=== PATIENT | male | born 1985 | race Caucasian/White ===

== ENCOUNTER 2017-06-06 13:17 | Emergency (ER) | payer MEDICAID ==
--- NOTE | 2017-06-06 13:44 | EDM.PDOC ---
ED HPI GENERAL MEDICAL PROBLEM - General Chief Complaint: General Stated Complaint: BLOOD IN URINE Time Seen by Provider: 06/06/17 13:30 Source of Information: Reports: Patient History Limitations: Reports: No Limitations - History of Present Illness INITIAL COMMENTS - FREE TEXT/NARRATIVE: Jimi comes to [facility] ED with a week long hx of post voiding burning pain, at times associated with sediment or mucous in the urine, and more recently today with BRB. He denies recent coitus, hx of UTI or stone disease, but does admit to a STD about 3 years ago. He is on no prescription meds. Penis Pain Score (Numeric/FACES): 4 - Related Data Allergies Allergy/AdvReac Type Severity Reaction Status Date / Time acetaminophen [From NyQuil] Allergy Shortness Verified 02/03/13 18:11 of Breath dextromethorphan HBr Allergy Shortness Verified 02/03/13 18:11 [From NyQuil] of Breath doxylamine [From NyQuil] Allergy Shortness Verified 02/03/13 18:11 of Breath ibuprofen Allergy Shortness Verified 02/03/13 18:11 [From DayQuil Sinus of Breath Pressure/Pain] pseudoephedrine HCl Allergy Shortness Verified 02/03/13 18:11 [From NyQuil] of Breath venom-honey bee Allergy Anaphylactic Verified 02/03/13 18:11 [bee venom (honey bee)] Shock Home Meds: Home Meds Sulfamethoxazole/Trimethoprim [Bactrim Ds Tablet] 1 each PO BID #14 tablet 06/06 [Rx] Past Medical History - Infectious Disease History Infectious Disease History: Reports: Other (See Below) (STD) Social & Family History - Tobacco Use Smoking Status *Q: Current Some Day Smoker Years of Tobacco use: 13 - Recreational Drug Use Recreational Drug Use: No ED ROS GENERAL - Review of Systems Review Of Systems: ROS reveals no pertinent complaints other than HPI. ED EXAM, GENERAL - Physical Exam Exam: See Below Exam Limited By: No Limitations General Appearance: Alert, WD/WN, No Apparent Distress Head: Normocephalic Neck: Normal Inspection, Supple, Non-Tender Respiratory/Chest: Lungs Clear, Normal Breath Sounds Cardiovascular: Regular Rate, Rhythm, No Murmur GI/Abdominal: Normal Bowel Sounds, Soft, Non-Tender, No Organomegaly, No Distention, No Mass (Male) Exam: No Hernia, Normal Inspection, Circumcised Back Exam: Normal Inspection Extremities: Normal Inspection Neurological: Alert, Oriented, CN II-XII Intact, Normal Gait, No Motor/Sensory Deficits Psychiatric: Normal Affect, Anxious Skin Exam: Warm, Dry Lymphatic: No Adenopathy Course - Vital Signs Text/Narrative:: The UA noted large blood, pos nitrites, pyuria and hematuria. A UC is pending. Hemorrhagic cystitis is apparent clinically. Last Recorded V/S: Last Vital Signs Temp 36.6 C 06/06/17 13:50 Pulse 84 06/06/17 13:50 Resp 16 06/06/17 13:50 BP 113/82 06/06/17 13:50 Pulse Ox 100 06/06/17 13:50 - Orders/Labs/Meds Orders: Active Orders 24 hr Category Date Time Status CHLAMYDIA,AND GC BY APTIMA Urgent Lab 06/06/17 13:46 Received CULTURE URINE [RM] Stat Lab 06/06/17 13:46 Received Labs: Laboratory Tests 06/06/17 Range/Units 13:46 Urine Color [place] (YELLOW) Urine Appearance Slightly cloudy (CLEAR) Urine pH 5.0 (5.0-6.5) Ur Specific [place] 1.010 (1.010-1.025) Urine Protein 500 H (NEGATIVE) mg/dL Urine Glucose (UA) Normal (NEGATIVE) mg/dL Urine Ketones Negative (NEGATIVE) mg/dL Urine Occult Blood Large H (NEGATIVE) Urine Nitrite Positive H (NEGATIVE) Urine Bilirubin Moderate H (NEGATIVE) Urine Urobilinogen >=12 H (NEGATIVE) mg/dL Ur Leukocyte Esterase Small H (NEGATIVE) Urine RBC >100 H (0) Urine WBC >100 H (0) Ur Squamous Epith Cells Few H (NS,R,O) Urine Bacteria Many H (NS) Departure - Departure Time of Disposition: 14:21 Disposition: Home, Self-Care 01 Condition: Fair Clinical Impression: Hemorrhagic cystitis - Discharge Information Prescriptions: Sulfamethoxazole/Trimethoprim [Bactrim Ds Tablet] 1 each PO BID #14 tablet Referrals: Mc Gonsalez MD [Primary Care Provider] - Forms: ED Department Discharge - Problem List & Annotations (1) Hemorrhagic cystitis SNOMED Code(s): 09583007 Code(s): N30.91 - CYSTITIS, UNSPECIFIED WITH HEMATURIA Status: Acute Current Visit: Yes Annotation/Comment:: I dispensed SMP/TMX DS bid for a week , suggested hydration and Pyridium for comfort. - Problem List Review Problem List Initiated/Reviewed/Updated: Yes - My Orders Last 24 Hours: My Active Orders 06/06/17 13:46 CHLAMYDIA,AND GC BY APTIMA Urgent CULTURE URINE [RM] Stat - Assessment/Plan Last 24 Hours: My Active Orders 06/06/17 13:46 CHLAMYDIA,AND GC BY APTIMA Urgent CULTURE URINE [RM] Stat Plan: Follow up with PCP in 1 week.
[2017-06-06 13:51] VITALS: BP 113/82
== END 2017-06-06 14:39 | disposition home or self-care (01) ==
LOC: FB.ED 13:17
DX: N30.91 Cystitis, unspecified with hematuria (principal); F17.210 Nicotine dependence, cigarettes, uncomplicated; Z88.6 Allergy status to analgesic agent; Z88.8 Allergy status to other drugs, medicaments and biological substances; Z91.030 Bee allergy status
CPT/HCPCS: 81001; 87086; 87088; 87186; 87491; 87591; 99284

== ENCOUNTER 2017-07-03 10:59 | Emergency (ER) | payer MEDICAID ==
[2017-07-03] MEDS ORDERED: Acetaminophen 500 MG Tab PO ONE (11:49)
[2017-07-03] MEDS ORDERED: Ondansetron 4 MG Tab.DIS PO ONE (11:49)
--- NOTE | 2017-07-03 11:57 | EDM.PDOC ---
ED HPI GENERAL MEDICAL PROBLEM - General Chief Complaint: General Stated Complaint: BLADDER INFECTION Time Seen by Provider: 07/03/17 11:40 Source of Information: Reports: Patient, Old Records History Limitations: Reports: No Limitations - History of Present Illness INITIAL COMMENTS - FREE TEXT/NARRATIVE: 31 yo non-compliant, smoking male presents with dysuria, R flank pain, body aches, weakness, nausea without vomiting, and malaise. He had been here a couple weeks ago and was prescribed an antibiotic that he didn't finish. He was instructed to follow up in the clinic but he did not. No respiratory complaints. Feels worse when he is up. No diarrhea or rash. Onset: Gradual, Unknown/Unsure Duration: Day(s):, Getting Worse Location: Reports: Generalized Quality: Reports: Ache (R flank?) Severity: Moderate Improves with: Reports: None Worsens with: Reports: Other (? time) Context: Reports: Other (Recent UTI dx with no followup or completion of meds. ) Associated Symptoms: Reports: Fever/Chills (Not sure about the fever, not measured.), Malaise, Nausea/Vomiting (no vomiting, nausea intermittent and mild. ). Denies: Cough, Headaches, Rash Treatments [employer]LECT[employer]: Reports: Other (see below) (none) Generalized Pain Score (Numeric/FACES): 3 - Related Data Allergies Allergy/AdvReac Type Severity Reaction Status Date / Time acetaminophen [From NyQuil] Allergy Shortness Verified 07/03/17 12:03 of Breath dextromethorphan HBr Allergy Shortness Verified 07/03/17 12:03 [From NyQuil] of Breath doxylamine [From NyQuil] Allergy Shortness Verified 07/03/17 12:03 of Breath ibuprofen Allergy Shortness Verified 07/03/17 12:03 [From DayQuil Sinus of Breath Pressure/Pain] pseudoephedrine HCl Allergy Shortness Verified 07/03/17 12:03 [From NyQuil] of Breath venom-honey bee Allergy Anaphylactic Verified 07/03/17 12:03 [bee venom (honey bee)] Shock Home Meds: Home Meds NK [No Known Home Meds] 07/03/17 [History] Past Medical History Psychiatric History: Reports: Depression Other Psychiatric History: Pt is going to be seen tomorrow here in [facility]. Pt is currently not on any medication. - Infectious Disease History Infectious Disease History: Reports: Other (See Below) (STD) Other Infectious Disease History: Pt states about 3 years ago he was treated with PO medications for STD-unknown. Social & Family History - Tobacco Use Smoking Status *Q: Current Some Day Smoker Years of Tobacco use: 13 Packs/Tins Daily: 1 - Recreational Drug Use Recreational Drug Use: No ED ROS GENERAL - Review of Systems Review Of Systems: See Below Constitutional: Reports: Fever (possibly), Malaise HEENT: Reports: No Symptoms Respiratory: Reports: No Symptoms Cardiovascular: Reports: Lightheadedness Endocrine: Reports: No Symptoms GI/Abdominal: Reports: Nausea. Denies: Abdominal Pain, Anorexia, Black Stool, Bloody Stool, Constipation, Diarrhea, Decreased Appetite, Difficulty Swallowing , Distension, Flatus, Hematemesis, Hematochezia, Melena, Vomiting : Reports: Dysuria, Flank Pain (mild on the right.) Musculoskeletal: Reports: No Symptoms Skin: Reports: No Symptoms Neurological: Reports: No Symptoms ED EXAM, GENERAL - Physical Exam Exam: See Below Exam Limited By: No Limitations General Appearance: Alert, WD/WN, No Apparent Distress Eye Exam: Bilateral Eye: Normal Inspection Ears: Normal External Exam, Normal Canal, Hearing Grossly Normal, Normal TMs Ear Exam: Bilateral Ear: Auricle Normal, Canal Normal, TM normal Nose: Normal Inspection, Normal Mucosa, No Blood Throat/Mouth: Normal Inspection, Normal Lips, Normal Oropharynx, Normal Voice, No Airway Compromise Head: Atraumatic, Normocephalic Neck: Normal Inspection, Supple, Non-Tender Respiratory/Chest: No Respiratory Distress, Lungs Clear, Normal Breath Sounds, No Accessory Muscle Use, Chest Non-Tender Cardiovascular: Regular Rate, Rhythm, No Edema GI/Abdominal: Normal Bowel Sounds, Soft, Non-Tender, No Distention Back Exam: Normal Inspection, CVA Tenderness (R) Extremities: Normal Inspection, Normal Range of Motion, Non-Tender, No Pedal Edema Neurological: Alert, Oriented, CN II-XII Intact, Normal Cognition, No Motor/ Sensory Deficits Psychiatric: Normal Affect, Normal Mood Skin Exam: Warm, Dry, Intact, Normal Color, No Rash Lymphatic: No Adenopathy Course - Vital Signs Last Recorded V/S: Last Vital Signs Temp 36.9 C 07/03/17 12:22 Pulse 73 07/03/17 12:22 Resp 18 07/03/17 12:22 BP 129/74 07/03/17 12:22 Pulse Ox 99 07/03/17 12:22 Orthostatic Blood Pressure [ 120/93 Standing] Orthostatic Blood Pressure [ 150/73 Sitting] Orthostatic Blood Pressure [ 118/76 Supine] - Orders/Labs/Meds Orders: Active Orders 24 hr Category Date Time Status Orthostatic Vital Signs [RC] ASDIRECTED Care 07/03/17 11:48 Active Labs: Laboratory Tests 07/03/17 07/03/17 07/03/17 Range/Units 12:00 12:03 12:03 WBC 11.1 (4.5-12.0) X10-3/uL RBC 5.18 (4.30-5.75) x10(6)uL Hgb 15.4 (11.5-15.5) g/dL Hct 45.4 (30.0-51.3) % MCV 87.7 (80-96) fL MCH 29.7 (27.7-33.6) pg MCHC 33.9 (32.2-35.4) g/dL RDW 12.8 (11.5-15.5) % Plt Count 288 (125-369) X10(3)uL Sodium 141 (135-145) mmol/L Potassium 4.2 (3.5-5.3) mmol/L Chloride 103 (100-110) mmol/L Carbon Dioxide 31 (21-32) mmol/L BUN 10 (7-18) mg/dL Creatinine 1.0 (0.70-1.30) mg/dL Est Cr Clr Drug Dosing 115.67 mL/min Estimated GFR (MDRD) > 60 (>60) BUN/Creatinine Ratio 10.0 (9-20) Glucose 75 L (80-116) mg/dL Calcium 9.4 (8.6-10.2) mg/dL Urine Color Yellow (YELLOW) Urine Appearance Clear (CLEAR) Urine pH 7.0 H (5.0-6.5) Ur Specific [place] 1.010 (1.010-1.025) Urine Protein Negative (NEGATIVE) mg/dL Urine Glucose (UA) Normal (NEGATIVE) mg/dL Urine Ketones Negative (NEGATIVE) mg/dL Urine Occult Blood Negative (NEGATIVE) Urine Nitrite Negative (NEGATIVE) Urine Bilirubin Negative (NEGATIVE) Urine Urobilinogen Normal (NEGATIVE) mg/dL Ur Leukocyte Esterase Negative (NEGATIVE) Urine WBC 0-5 (0) Ur Squamous Epith Cells Occasional (NS,R,O) Urine Bacteria Few H (NS) Meds: Medications Discontinued Medications Generic Name Dose Route Start Last Admin Trade Name Freq PRN Reason Stop Dose Admin Acetaminophen 1,000 mg 07/03/17 11:49 07/03/17 12:18 Tylenol Extra Strength PO 07/03/17 11:50 1,000 mg ONETIME ONE Administration Ondansetron HCl 4 mg 07/03/17 11:49 07/03/17 12:19 Zofran Odt PO 07/03/17 11:50 4 mg ONETIME ONE Administration Departure - Departure Time of Disposition: 12:53 Disposition: Home, Self-Care 01 Condition: Fair Clinical Impression: Viral illness - Discharge Information Referrals: Pham Cespedes NP [Primary Care Provider] - Forms: ED Department Discharge - My Orders Last 24 Hours: My Active Orders 07/03/17 11:48 Orthostatic Vital Signs [RC] ASDIRECTED - Assessment/Plan Last 24 Hours: My Active Orders 07/03/17 11:48 Orthostatic Vital Signs [RC] ASDIRECTED
[2017-07-03 13:44] VITALS: BP 116/65
== END 2017-07-03 13:43 | disposition home or self-care (01) ==
LOC: FB.ED 10:59
DX: B34.9 Viral infection, unspecified (principal); F17.210 Nicotine dependence, cigarettes, uncomplicated; Z88.8 Allergy status to other drugs, medicaments and biological substances; Z91.030 Bee allergy status; Z88.6 Allergy status to analgesic agent
CPT/HCPCS: 36415; 80048; 81001; 85027; 87804; 99283; A9270

== ENCOUNTER 2017-08-11 18:23 | Emergency (ER) | payer MEDICAID ==
[2017-08-11 19:06] VITALS: BP 121/76
== END 2017-08-11 19:42 | disposition left against medical advice (07) ==
LOC: FB.ED 18:23
DX: Z53.21 Procedure and treatment not carried out due to patient leaving prior to being seen by health care provider (principal)

== ENCOUNTER 2017-08-11 21:15 | Emergency (ER) | payer SELFPAY ==
[2017-08-11 22:10] VITALS: BP 131/115
[2017-08-11] MEDS ORDERED: Cephalexin 500 MG Cap PO ONE (22:38)
--- NOTE | 2017-08-11 22:43 | EDM.PDOC ---
ED HPI GENERAL MEDICAL PROBLEM - General Chief Complaint: Skin Complaint Stated Complaint: INFECTION Time Seen by Provider: 08/11/17 22:20 Source of Information: Reports: Patient History Limitations: Reports: No Limitations - History of Present Illness INITIAL COMMENTS - FREE TEXT/NARRATIVE: c/o skin infection pt d/c'ed a few days ago from [place] for mental health admission now with dry nose and occasion bleeding on the L has had some redness around damon on his L thumb and L thigh has had some secretions drain from under lingula at L ring finger no f/c/d Bilateral Groin Pain Score (Numeric/FACES): 4 Left Feet Pain Score (Numeric/FACES): 0 Right Leg Pain Score (Numeric/FACES): 4 Left 1-Thumb Pain Score (Numeric/FACES): 4 - Related Data Allergies Allergy/AdvReac Type Severity Reaction Status Date / Time acetaminophen [From NyQuil] Allergy Shortness Verified 08/11/17 19:05 of Breath dextromethorphan HBr Allergy Shortness Verified 08/11/17 19:05 [From NyQuil] of Breath doxylamine [From NyQuil] Allergy Shortness Verified 08/11/17 19:05 of Breath ibuprofen Allergy Shortness Verified 08/11/17 19:05 [From DayQuil Sinus of Breath Pressure/Pain] pseudoephedrine HCl Allergy Shortness Verified 08/11/17 19:05 [From NyQuil] of Breath venom-honey bee Allergy Anaphylactic Verified 08/11/17 19:05 [bee venom (honey bee)] Shock Home Meds: Home Meds .Geodon 1 tab PO BID 08/11/17 [History] .Strattera 1 tab PO DAILY 08/11/17 [History] Cephalexin 500 mg PO TID #15 tablet 08/11/17 [Rx] Past Medical History - Past Health History Medical/Surgical History: Denies Medical/Surgical History HEENT History: Reports: None Genitourinary History: Reports: STD Other Genitourinary History: Pt was diagnosed with Herpes several years ago. Psychiatric History: Reports: Bipolar, Depression, Mood Swings Other Psychiatric History: Pt is going to be seen tomorrow here in town at [place]. Pt is currently not on any medication. Other Dermatologic History: Pt has athletes foot, burn to his left thumb, right thigh, and his pointer finger on left hand is slightly swollen. - Infectious Disease History Infectious Disease History: Reports: Herpes Other Infectious Disease History: Pt states about 3 years ago he was treated with PO medications for STD-unknown. - Past Surgical History Respiratory Surgical History: Reports: Other (See Below) Other Respiratory Surgeries/Procedures: lung surgery for emphysemous blebs Social & Family History - Family History Family Medical History: Noncontributory - Tobacco Use Smoking Status *Q: Current Every Day Smoker Years of Tobacco use: 15 Packs/Tins Daily: 1 - Caffeine Use Caffeine Use: Reports: None - Recreational Drug Use Recreational Drug Use: No ED ROS GENERAL - Review of Systems Review Of Systems: See Below Constitutional: Reports: No Symptoms HEENT: Reports: Nosebleed Respiratory: Reports: No Symptoms Cardiovascular: Reports: No Symptoms Endocrine: Reports: No Symptoms GI/Abdominal: Reports: No Symptoms : Reports: No Symptoms Musculoskeletal: Reports: No Symptoms Skin: Reports: Erythema, Burn(s) Neurological: Reports: No Symptoms Psychiatric: Reports: No Symptoms Hematologic/Lymphatic: Reports: No Symptoms Immunologic: Reports: No Symptoms ED EXAM, SKIN/RASH Exam: See Below Exam Limited By: No Limitations General Appearance: Alert, WD/WN, Anxious, Other (cooperative) Ears: Normal External Exam Nose: Other (dryness nares without erythema or RBC) Throat/Mouth: Normal Inspection, Normal Voice, No Airway Compromise Head: Atraumatic, Normocephalic Respiratory/Chest: No Respiratory Distress Cardiovascular: Regular Rate, Rhythm Extremities: Other (at base of L thum is a 5 x 4 mm area of superficial ulceration with perhaps a small 3 mm pustule, no red, no streaks, NT. L thigh with a 1 cm burn with 1 cm surrounding red and slightly indurated and slightly tender skin c/w healing vs possible cellulitis, at base of L ring finger there is mild red and mild swell and mild tender lingula c/w paronychia, buttock and groin are neg with intact skin) Course - Vital Signs Last Recorded V/S: Last Vital Signs Temp 36.8 C 08/11/17 22:09 Pulse 84 08/11/17 22:09 Resp 16 08/11/17 22:09 BP 131/115 H 08/11/17 22:09 Pulse Ox 100 08/11/17 22:09 - Orders/Labs/Meds Meds: Medications Discontinued Medications Generic Name Dose Route Start Last Admin Trade Name Sotero PRN Reason Stop Dose Admin Cephalexin 500 mg 08/11/17 22:38 Keflex PO 08/11/17 22:39 ONETIME ONE Departure - Departure Time of Disposition: 22:43 Disposition: Home, Self-Care 01 Condition: Good Clinical Impression: Cellulitis, Dry nares, Paronychia - Discharge Information Prescriptions: Cephalexin 500 mg PO TID #15 tablet Instructions: Cellulitis, Adult, Paronychia Referrals: PCP,None [Primary Care Provider] - Forms: ED Department Discharge Additional Instructions: For infection, take cephalexin 500 mg 1 tab 3 times a day for 5 days. Avoid scratching or rubbing. May use a small amount of vasoline on a q-tip in the nares once daily as needed. See your doctor in 5 days.
== END 2017-08-11 23:20 | disposition home or self-care (01) ==
LOC: FB.ED 21:15
DX: L03.012 Cellulitis of left finger (principal); F17.210 Nicotine dependence, cigarettes, uncomplicated; Z88.8 Allergy status to other drugs, medicaments and biological substances; Z79.899 Other long term (current) drug therapy; Z91.030 Bee allergy status
CPT/HCPCS: 99283; A9270